=== PATIENT | male | born 1970 ===

== ENCOUNTER 2018-11-09 08:00 | Day surgery (SDC) | payer OTHER | END 2018-11-09 12:50 | disposition home or self-care (01) | LOC: AMB-ENDOS 08:00 | DX: K64.0 First degree hemorrhoids (principal); K64.4 Residual hemorrhoidal skin tags ==

== ENCOUNTER 2020-10-13 09:44 | Emergency (ER) | payer OTHER ==
[~2020-10-13] VITALS: Ht 170.2 cm; Wt 98.9 kg
[2020-10-13] MEDS ORDERED: NORFLEX100MG PO (14:50)
== END 2020-10-13 14:50 | disposition home or self-care (01) ==
LOC: ER 09:44
DX: R07.89 Other chest pain (principal); Z03.818 Encounter for observation for suspected exposure to other biological agents ruled out

== ENCOUNTER → 2020-10-15 | Emergency (ER) | payer OTHER ==
[~2020-10-15] VITALS: Ht 152.4 cm; Wt 98.9 kg
[~2020-10-15] MED LIST: NORFLEX100MG PO; ULTRAM50 MG
== END | disposition left against medical advice (07) ==
LOC: ER 12:05
DX: R07.89 Other chest pain (principal)

== ENCOUNTER 2020-10-22 14:51 | Emergency (ER) | payer OTHER ==
[~2020-10-22] VITALS: Ht 170.2 cm; Wt 98.9 kg
[~2020-10-22 14:51] MED LIST changes: -ULTRAM50 MG
[2020-10-22] MEDS ORDERED: ULTRAM50 MG (15:37)
== END 2020-10-22 20:31 | disposition home or self-care (01) ==
LOC: ER 14:51
DX: R07.89 Other chest pain (principal); M54.6 Pain in thoracic spine

== ENCOUNTER 2020-12-26 19:14 | Emergency (ER) | payer OTHER ==
[~2020-12-26] VITALS: Ht 170.2 cm; Wt 97.5 kg
[~2020-12-26 19:14] MED LIST changes: +ULTRAM50 MG
[2020-12-27] MEDS ORDERED: NORFLEX100MG PO (00:20)
[2020-12-27] MEDS ORDERED: CYCLOBENZAPRINE10 MG PO (00:20)
== END 2020-12-27 00:44 | disposition home or self-care (01) ==
LOC: ER 19:14
DX: S40.011A Contusion of right shoulder, initial encounter (principal); V43.52XA Car driver injured in collision with other type car in traffic accident, initial encounter; Y93.89 Activity, other specified; Y92.89 Other specified places as the place of occurrence of the external cause; Y99.8 Other external cause status

== ENCOUNTER 2021-01-09 11:58 | Outpatient (CLI) | payer OTHER ==
[~2021-01-09 11:58] MED LIST changes: +CYCLOBENZAPRINE10 MG PO
== END 2021-01-09 12:14 | disposition home or self-care (01) ==
LOC: MRI 11:58
PROVIDERS: ATTEND General Practice
DX: R07.89 Other chest pain (principal); M25.511 Pain in right shoulder; G89.11 Acute pain due to trauma
CPT/HCPCS: 73221

== ENCOUNTER 2021-03-29 05:26 | Day surgery (SDC) | payer OTHER | END 2021-03-29 11:05 | disposition home or self-care (01) | LOC: CIR.AMB 05:26 | PROVIDERS: ATTEND Orthopaedic Surgery | DX: M75.121 Complete rotator cuff tear or rupture of right shoulder, not specified as traumatic (principal); M24.111 Other articular cartilage disorders, right shoulder; M75.21 Bicipital tendinitis, right shoulder ==